=== PATIENT | female | born 1955 | race Caucasian/White ===

== ENCOUNTER → 2021-10-19 16:03 | Outpatient (CLI) | payer OTHER, MEDICARE, SELFPAY ==
--- NOTE | ~2021-10-19 | XR_ITS ---
XR shoulder LT min 2V, XR shoulder RT min 2V 10/19/2021 16:42 Indication: Shoulder pain Procedure: 4 views of each shoulder Comparison: No prior studies for comparison. Findings: Mild bilateral glenohumeral joint osteoarthritis. There is anatomic alignment. No fracture, subluxation or dislocation. There is atherosclerosis of the aorta. The lungs are unremarkable. No so ft tissue abnormality. Impression: 1: Mild bilateral glenohumeral joint osteoarthritis. Reviewed, dictated and finalized at location A. Impression: 1: Mild bilateral glenohumeral joint osteoarthritis. Impression: 1: Mild bilateral glenohumeral joint osteoarthritis.
--- NOTE | ~2021-10-19 | XR_ITS ---
XR lumbar spine 2-3V 10/19/2021 16:42 Indication: Radiculopathy Procedure: 3 views of the lumbar spine Comparison: 08/30/2011 Findings: There is mild levoscoliosis. There are bilateral pedicle screws fusing L4 and L5. There is disc narrowing at all lumbar levels. There are laminectomy changes at L4-5. No acute fracture or trau matic malalignment. Generalized osteopenia. Impression: 1: Moderate multilevel lumbar spondylosis with fusion at L4-5. Reviewed, dictated and finalized at location A. Impression: 1: Moderate multilevel lumbar spondylosis with fusion at L4-5.
--- NOTE | ~2021-10-19 | XR_ITS ---
XR_CERV2-3V_CR 10/19/2021 16:41 Indication: Neck pain Procedure: 3 views of the cervical spine Comparison: No prior studies for comparison. Findings: Straightening of cervical lordosis. Vertebral body heights are maintained. There is mild mu ltilevel uncinate and facet hypertrophy. Lung apices are normal. Odontoid process within normal limit s. Impression: 1: Mild cervical spondylosis. Reviewed, dictated and finalized at location A. Impression: 1: Mild cervical spondylosis.
--- NOTE | ~2021-10-19 | XR_ITS ---
XR thoracic spine 3V 10/19/2021 16:42 Indication: Neck pain and radiculopathy Procedure: 3 views of the thoracic spine Comparison: No prior studies for comparison. Findings: Vertebral body heights are maintained. No fracture, subluxation or dislocation. There is sm all marginal osteophytes at multiple levels. No paraspinal soft tissue abnormality. There is normal t horacic kyphosis. Surrounding osseous structures within normal limits. There is atherosclerosis of th e aorta. Impression: 1: Mild thoracic spondylosis. Reviewed, dictated and finalized at location A. Impression: 1: Mild thoracic spondylosis.
== END ==
PROVIDERS: PCP Pain Medicine Interventional Pain Medicine; Visit Provider Pain Medicine Interventional Pain Medicine
DX: M47.812 Spondylosis without myelopathy or radiculopathy, cervical region (principal); M47.813 Spondylosis without myelopathy or radiculopathy, cervicothoracic region; M47.25 Other spondylosis with radiculopathy, thoracolumbar region; M47.894 Other spondylosis, thoracic region; M47.896 Other spondylosis, lumbar region; M19.011 Primary osteoarthritis, right shoulder; M19.012 Primary osteoarthritis, left shoulder
CPT/HCPCS: 72040; 72072; 72100; 73030

== ENCOUNTER → 2022-12-05 14:52 | Outpatient (CLI) | payer OTHER, MEDICARE, SELFPAY ==
--- NOTE | ~2022-12-05 | XR_ITS ---
XR shoulder LT min 2V DATE: 12/05/2022 15:53 INDICATION: Left shoulder pain TECHNIQUE: 4 views COMPARISON: 10/19/2021 left shoulder FINDINGS: There is osteopenia. No recent fracture or dislocation, bone destruction or abnormal soft tissue calcification. There is mild glenohumeral osteoarthritis. IMPRESSION: Mild glenohumeral osteoarthritis Osteopenia Reviewed, dictated and finalized at location A.
--- NOTE | ~2022-12-05 | XR_ITS ---
EXAMINATION: XR thoracic spine 3V DATE: 12/05/2022 15:53 INDICATION: Thoracic radiculopathy. TECHNIQUE: 3 views of thoracic spine were obtained. COMPARISON: Thoracic spine radiographs 10/19/2021 FINDINGS: There is 3 degrees dextrocurvature of thoracic spine. Vertebral body heights are normal. Th ere is mildly decreased disc height at multiple levels. There are endplate osteophytes at all levels. IMPRESSION: 1. Mild thoracic spondylosis. Reviewed, dictated and finalized at location E.
--- NOTE | ~2022-12-05 | XR_ITS ---
XR shoulder RT min 2V DATE: 12/05/2022 15:53 INDICATION: Right shoulder pain TECHNIQUE: 4 views COMPARISON: 10/19/2021 right shoulder FINDINGS: There is osteopenia. There is mild glenohumeral osteoarthritis. No fracture, dislocation, periosteal reaction or bone destruction is detected. IMPRESSION: Mild right glenohumeral osteoarthritis Osteopenia Reviewed, dictated and finalized at location A.
--- NOTE | ~2022-12-05 | XR_ITS ---
EXAMINATION: XR lumbar spine 2-3V DATE: 12/05/2022 15:53 INDICATION: Lumbar radiculopathy. TECHNIQUE: 3 views of lumbar spine standing were obtained. COMPARISON: Lumbar spine radiographs 10/19/2021 FINDINGS: There is 7 degrees levocurvature of thoracolumbar spine. Vertebral body heights are normal. There are changes of posterior fusion procedure at L4-L5 with pedicle screws. There is moderately de creased disc height at L1-L2, severely decreased disc height L2-L3 and L3-L4, mildly decreased disc h eight at L4-L5, and severely decreased disc height at L5-S1 with endplate remodeling. There is multil evel severe facet joint osteoarthritis. IMPRESSION: 1. Severe lumbar spondylosis with interval worsening at L3-L4. 2. Posterior fusion procedure at L4-L5. Reviewed, dictated and finalized at location E.
== END ==
PROVIDERS: PCP Pain Medicine Interventional Pain Medicine; Visit Provider Pain Medicine Interventional Pain Medicine
DX: M47.24 Other spondylosis with radiculopathy, thoracic region (principal); M47.25 Other spondylosis with radiculopathy, thoracolumbar region; M47.812 Spondylosis without myelopathy or radiculopathy, cervical region; M47.813 Spondylosis without myelopathy or radiculopathy, cervicothoracic region; M47.814 Spondylosis without myelopathy or radiculopathy, thoracic region; Z98.1 Arthrodesis status; M19.011 Primary osteoarthritis, right shoulder; M19.012 Primary osteoarthritis, left shoulder; M85.811 Other specified disorders of bone density and structure, right shoulder; M85.812 Other specified disorders of bone density and structure, left shoulder
CPT/HCPCS: 72072; 72100; 73030

== ENCOUNTER 2025-05-13 15:54 | Outpatient (CLI) | payer MEDICARE, SELFPAY ==
--- NOTE | ~2025-05-13 | XR_ITS ---
EXAM/PROCEDURE: XR lumbar spine 2-3V HISTORY: Radiculopathy, lumbar region COMPARISON: December 06, 2019 TECHNIQUE: 3 view lumbar series FINDINGS: Multilevel degenerative changes appear similar to slightly worse compared to the previous study. Bilateral posterior transpedicle fusion hardware at L4-5 appear stable with no gross hardware failure fracture or loosening. Severe disc space narrowing and spondylosis at L2-3, L3-4 and L5-S1. Advanced degenerative disc changes throughout the lumbar spine. Degenerative changes also present in the posterior elements. Fine bone and soft tissue detail obscured by patient body habitus as well as large amount of overlying stool and bowel gas. IMPRESSION: No gross interval change from the December 052022 exam. Severe degenerative changes at L2-3 and L3-4 as well as L5-S1. Reviewed, dictated and finalized at location A. H BURNER IMPRESSION: No gross interval change from the December 052022 exam. Severe degenerative agata nges at L2-3 and L3-4 as well as L5-S1.
--- NOTE | ~2025-05-13 | XR_ITS ---
EXAMINATION: XR shoulder RT min 2V DATE: 05/13/2025 16:32 INDICATION: Pain TECHNIQUE: Right shoulder x-ray were obtained. COMPARISON: None. FINDINGS: No displaced fracture dislocation or aggressive bone lesion. The bones are mildly osteopenic and degenerative throughout. No gross acute or aggressive bony or soft tissue process seen. IMPRESSION: 1. Degenerative and osteopenic appearing changes of the bones. 2. For persisting shoulder pain refractory to conservative therapy, consider correlation with shoulder MRI for optimal sensitivity. Reviewed, dictated and finalized at location A. NERY OPERATOR IMPRESSION: 1. Degenerative and osteopenic appearing changes of the bones. 2. For persisting shoulder pain refractory to conservative therapy, consider co rrelation with shoulder MRI for optimal sensitivity.
--- NOTE | ~2025-05-13 | XR_ITS ---
EXAMINATION: XR shoulder LT min 2V DATE: 05/13/2025 16:32 INDICATION: Pain TECHNIQUE: Left shoulder x-rays were obtained. COMPARISON: None. FINDINGS: No displaced fracture dislocation or aggressive bone lesion. The bones are mildly osteopenic and degenerative throughout. No gross acute or aggressive bony or soft tissue process seen. IMPRESSION: 1. Degenerative and osteopenic appearing changes of the bones. 2. For persisting shoulder pain refractory to conservative therapy, consider correlation with shoulder MRI for optimal sensitivity. Reviewed, dictated and finalized at location A. OM CAGER IMPRESSION: 1. Degenerative and osteopenic appearing changes of the bones. 2. For persisting shoulder pain refractory to conservative therapy, consider co rrelation with shoulder MRI for optimal sensitivity.
== END 2025-05-13 15:55 | disposition home or self-care (01) ==
PROVIDERS: PCP Pain Medicine Interventional Pain Medicine; Visit Provider Pain Medicine Interventional Pain Medicine
DX: M54.16 Radiculopathy, lumbar region (principal); M19.011 Primary osteoarthritis, right shoulder; M19.012 Primary osteoarthritis, left shoulder
CPT/HCPCS: 72100; 73030